=== PATIENT | female | born 1990 | race African-American/Black ===

== ENCOUNTER 2022-02-08 16:32 | Emergency (ER) | payer OTHER ==
--- NOTE | 2022-02-08 16:52 | ED Physician Documentation ---
PD HPI LOWER EXT INJURY - Stated complaint Stated Complaint: RIGHT ANKLE INJURY - Chief complaint Chief Complaint: Trauma Ext - History obtained from History obtained from: Patient - History of Present Illness PD HPI LOW EXT INJURY LOCATION: Right, Ankle, Foot Type of injury: Fall, Twist Where injury occurred: Home Timing - onset: How many days ago (2) Timing - duration: Days (2) Timing - details: Abrupt onset, Still present Improved by: Rest, Immobilization Worsened by: Moving, Palpating Associated symptoms: Swelling, Discolored. No: Weakness, Numbness, Tingling Contributing factors: No: Anticoagulated Similar symptoms before: Has not had sx before Recently seen: Not recently seen - Additional information Additional information: Previously well 31-year-old Keily Spicer tripped down 2 steps 2 days ago and she twisted her right ankle and has pain in the foot and ankle. She has swelling and redness to the area as well. She is not able to bear weight on the foot without pain. Review of Systems Constitutional: denies: Fever, Chills Ears: denies: Ear pain Nose: reports: Rhinorrhea / runny nose, Congestion Throat: denies: Sore throat Respiratory: denies: Cough GI: denies: Vomiting : denies: Dysuria, Frequency Skin: denies: Rash Musculoskeletal: reports: Extremity pain, Joint pain, Extremity swelling, Joint swelling, Pain with weight bearing. denies: Neck pain, Back pain Neurologic: denies: Generalized weakness, Focal weakness, Numbness PD PAST MEDICAL HISTORY - Allergies Allergies/Adverse Reactions: Allergies Allergy/AdvReac Type Severity Reaction Status Date / Time No Known Drug Allergies Allergy Verified 02/08/22 16:40 PD ED PE NORMAL - Vitals Vital signs reviewed: Yes (hypertensive ) - General General: Alert and oriented X 3, No acute distress, Well developed/nourished - HEENT HEENT: Atraumatic, PERRL, EOMI - Respiratory Respiratory: No respiratory distress - Derm Derm: Normal color, Warm and dry, No rash - Extremities Extremities: No deformity, Other (Swelling and point tenderness over the lateral malleolus on the right foot there is ecchymosis that is nonblanching surrounding the lateral malleolus. There is specific tenderness to the to the proximal fifth metatarsal as well without crepitance or deformity. Distal neurovascular intact) - Neuro Neuro: Alert and oriented X 3, floorman 2-12 intact, No motor deficit, No sensory deficit, Normal speech Eye Opening: Spontaneous Motor: Obeys Commands Verbal: Oriented GCS Score: 15 - Psych Psych: Normal mood, Normal affect Results - Vitals Vitals: Vital Signs - 24 hr 02/08/22 16:38 Temperature 35.9 C L Heart Rate 76 Respiratory 16 Rate Blood Pressure 135/83 H O2 Saturation 100 Oxygen O2 Source Room air - Rads (name of study) ankle Radiology: Prelim report reviewed (Impression: On this plain film study, no displaced fractures are seen. This), EMP read indepedently, See rad report foot Radiology: Prelim report reviewed (Impression: No displaced fractures are seen on these plain films.), EMP read indepedently, See rad report PD MEDICAL DECISION MAKING - ED course Complexity details: reviewed results, re-evaluated patient, considered differential, d/w patient ED course: 31-year-old female with a sprain to her right ankle has no evidence of fracture of the ankle or foot and she is placed into an ankle stirrup. Departure - Departure Disposition: 01 Home, Self Care Clinical Impression: Ankle sprain Qualifiers: Encounter type: initial encounter Involved ligament of ankle: anterior talofibular ligament Laterality: right Qualified Code(s): S93.491A - Sprain of other ligament of right ankle, initial encounter Instructions: ED Sprain Ankle W X Ray Follow-Up: VIRGIL TO DO [Primary Care Provider] - Comments: Keily, today it looks like you have a sprained ankle and our expectation is for full recovery within a 2-week period. If you are doing excessive physical activity this summer such as walking on uneven ground wear your splint. If you are participating in sporting activities wear the splint.
--- NOTE | 2022-02-08 17:44 | XRAY Report ---
PROCEDURE: Foot 3 View RT INDICATIONS: twist fall pain to prox 5th TECHNIQUE: 3 views of the foot were acquired. COMPARISON: Correlation is made with the accompanying ankle plain films, 02/08/2022. FINDINGS: Bones: In this patient with this given history, scrutiny is given to the proximal fifth metatarsal. No fractures or dislocations can be seen at this site. No fractures or dislocations can be seen elsew here. No suspicious bony lesions. Soft tissues: No tibiotalar joint effusion. Achilles tendon appears normal. IMPRESSION: No displaced fractures are seen on these plain films. Reviewed by: Juan Manuel Parisi MD on 02/08/2022 4:43 PM ERIC Approved by: Juan Manuel Parisi MD on 02/08/2022 4:43 PM ERIC Station ID: [id number]
--- NOTE | 2022-02-08 17:45 | XRAY Report ---
PROCEDURE: Ankle 3 View RT INDICATIONS: twist pain bruising to lat malleolus TECHNIQUE: 3 views of the ankle were acquired. COMPARISON: Correlation is made with the accompanying foot plain films, 02/08/2022. FINDINGS: Bones: In this patient with this given history, scrutiny is given to lateral malleolus. No fractures or dislocations are seen at this site or elsewhere. Ankle mortise is normally aligned. No suspicio us bony lesions. The talar dome demonstrates an unremarkable appearance. Soft tissues: No tibiotalar joint effusion. Achilles tendon appears normal. IMPRESSION: On this plain film study, no displaced fractures are seen. Reviewed by: Juan Manuel Parisi MD on 02/08/2022 4:44 PM ERIC Approved by: Juan Manuel Parisi MD on 02/08/2022 4:44 PM ERIC Station ID: [id number]
[2022-02-08 18:10] VITALS: BP 129/80
== END 2022-02-08 18:19 | disposition home or self-care (01) ==
LOC: ED 16:32
DX: S93.491A Sprain of other ligament of right ankle, initial encounter (principal); W10.9XXA Fall (on) (from) unspecified stairs and steps, initial encounter; Y92.009 Unspecified place in unspecified non-institutional (private) residence as the place of occurrence of the external cause
CPT/HCPCS: 99282; 99283

== ENCOUNTER 2022-03-06 15:48 | Outpatient (CLI) | payer OTHER ==
--- NOTE | 2022-03-06 16:35 | SLEEP CARE CONSULTATION ---
Information from patient questionnaire entered by Lenora Vilchis MA. I have reviewed and concur with the information entered by Lenora Vilchis MA. This document represents the service I personally performed and the decisions made by , Tierra Kiran ARNP. History of Present Illness Service Date and Time: 03/06/2022 1548 Reason for Visit: New patient (ONSET 08/30/2011, NO PRIORS,) Chief Complaint: reports: Snoring, Observed pauses in breathing Date of Onset: 3 YEARS Usual bedtime: 10 PM Time it takes to fall asleep: NOT LONG; minutes Snores at night: Yes Observed to quit breathing while asleep: Yes Sleeps alone due to snoring: No Number of times waking at night: 2-3 Reasons for waking at night: reports: Choking, Snoring, Bathroom Toss, Turn, or Twitch while sleeping: Yes Recalls having dreams: Yes Usually gets out of bed at: 0600 Feels refreshed in the morning: No Morning headache: No Sleepy or fatigued during the day: No Ever fallen asleep while driving: Yes (drowsy driving, no accidents; will hand assembler for puller over if necessary) Takes day naps: Yes (1-2 times a week; 2+ hours on average) Dreams during day naps: Yes Prior sleep studies: No Additional HPI information: I had the pleasure of seeing INES MONTOYA today regarding the possibility of her having a sleep disorder. Her current complaints are snoring and observed pauses in breathing. She states her snoring sometimes wakes her up. She will wake up coughing and has pauses in breathing when sleeping according to her mother. She states most of the time she wake up rested, it just depends on the day. She states she is always tired throughout the day and has had issues with drowsy driving. She does not get regular morning headaches. She has been known to talk in her sleep. She states her grandmother is on a CPAP machine for her sleep apnea. - Parasomnia Symptoms Ever been unable to move upon waking from sleep: No Walks in sleep: No Talks in sleep: Yes Ever acted out dreams in sleep: No Ever felt weak in the knees when startled or emotional: No Bothered by creepy, crawly, restless sensations in legs: No Problems with memory or concentration: No Subjective Initial [place] Sleepiness Scale score: 13 (03/06/2022) Past Medical History Past Medical History: reports: Other (tonsillectomy 11/2018; breast reduction surgery 01/2019) Social History The patient's occupation is a [employer]. Patient is Single and lives in . Have you smoked in the past 12 months: No Alcohol use: Yes Alcohol amount and frequency: 5-6 x yearly Caffeine use: Yes Caffeine amount and frequency: not often Family History Family history of sleep disordered breathing: Yes Family Hx Sleep Apnea: Mother: Snoring, Grandparent: Snoring, Sleep apnea - Treated Allergies and Home Medications Known drug allergies: No Drug allergies reviewed: Yes (NKDA) Home medication list reviewed: Yes (no daily medications) Allergy and home medication list: Allergies No Known Drug Allergies Allergy (Verified 02/08/22 16:40) Review of Systems Weight gain over past 5 years: 19 Weight loss over past 5 years: 10 Cardiovascular: denies: high blood pressure Gastrointestinal: denies: heartburn Neurological: reports: headaches (random, 1-2 a month; with menstral cycle sometimes). denies: head trauma Psychiatric: reports: anxiety Ear/Nose/Throat: reports: nasal congestion, sinus problems, dry mouth/throat, tonsillectomy, wisdom teeth removed (2 removed) Musculoskeletal: reports: neck pain, back pain Immunologic: reports: sneezing Physical Exam Vital signs obtained and entered by: ADDY LOWE Blood Pressure: 122/74 (RESP 18, PULSE 86, RIGHT) O2 Saturation: 98 Height: 4 ft 10 in Weight: 173 lb (UNIFORM BOOTS) Weight change since last visit: EXCERCISE, DIET Body Mass Index: 36.1 BMI Classification: Obese Neck circumference: 12.5 (INCHES) Mouth and throat: narrow oropharynx Soft palate: long Hard palate: normal Uvula: normal Uvula visualization: 25% Mallampati Class III Tongue: enlarged in size with teeth issa on lateral edges Tonsils: absent bilaterally Neck: normal w/o lymphadenopathy or thyromegaly Heart: regular rate and rhythm Lungs: clear bilaterally Impression and Plan 1. Suspected Obstructive Sleep Apnea-Hypopnea Syndrome, as suggested by a history of loud and irregular snoring, observed cessation of breath while asleep, gasping or choking in sleep, and excessive daytime sleepiness. Narrow oropharynx and obesity are common predisposing factors for obstructive sleep apnea-hypopnea syndrome. I recommend proceeding to polysomnography to confirm the diagnosis and to assess severity. If the patient has significant sleep disordered breathing, a manual CPAP titration study will also be performed to find the optimal treatment pressure. I informed the patient of what the sleep studies involve and after some discussion, obtained agreement to proceed. The pathophysiology of obstructive sleep apnea-hypopnea syndrome was discussed with the patient and health risks of cardiovascular and cerebrovascular disease if not treated. Risks of drowsy driving discussed in detail and patient advised to avoid long distance driving and to hand assembler for puller over at the first sign of drowsiness. Patient agreed to plan. * Schedule polysomnography * Avoid long distance driving or driving when feeling sleepy. * Avoid alcohol, sedative and muscle relaxant around bedtime. * Attempt to lose weight. * Review instructions provided by trained office staff on how to prepare for the sleep study. * Return for follow-up after sleep study completed. Counseling Topics: Weight loss health impact Visit Type: In Office Time Spent with Patient (minutes): 30 Provider Statement: I spent 100% of the Face to Face Visit with the patient with greater than 50% spent counseling the patient and coordination of care.
[2022-03-06 16:36] VITALS: BP 122/74
== END 2022-03-06 15:49 | disposition home or self-care (01) ==
LOC: SC 15:48
PROVIDERS: ATTEND Nurse Practitioner Family
DX: R06.83 Snoring (principal); R06.81 Apnea, not elsewhere classified; G47.10 Hypersomnia, unspecified; R53.83 Other fatigue; E66.9 Obesity, unspecified; Z68.36 Body mass index [BMI] 36.0-36.9, adult
CPT/HCPCS: 99203; 99212